=== PATIENT | female | born 1990 | race Caucasian/White ===

== ENCOUNTER 2024-05-09 07:40 | Emergency (ER) | payer BC ==
[2024-05-09 07:53] VITALS: TEMP 98.9
--- NOTE | 2024-05-09 08:09 | ED ---
Abdominal Pain HPI - General Chief Complaint: Abdominal Pain Stated Complaint: abdominal pain, vomitting Time Seen by Provider: 05/09/24 08:07 Source: patient, family, RN notes reviewed Mode of arrival: wheelchair Limitations: no limitations - History of Present Illness Initial Comments: 33-year-old female presented the ER for evaluation abdominal pain. Patient reports she is currently being picked up for possible endometriosis. She states since 05-06-2024 she has had progressively worsening abdominal pain. She does report this is worse on the right side. She describes it as a squeezing twisting pain. Patient does admit to being currently on her menstrual cycle. She states this morning she had multiple episodes of nausea and vomiting due to the pain which prompted her to come to the ER for evaluation. Patient has been taking [id number] 600 mg ibuprofen without relief. She does report pain is worse with movement and improves with laying flat and still. She denies any fevers, urinary complaints, constipation/diarrhea, chest pain, shortness of breath or other complaints. - Related Data Home Medications Medication Instructions Recorded Confirmed QUEtiapine [SEROquel] 25 mg PO HS PRN 05/09/24 05/09/24 Vortioxetine Hydrobromide 20 mg PO DAILY@1830 05/09/24 05/09/24 [Trintellix] buPROPion XL [Wellbutrin XL] 150 mg PO DAILY@1330 05/09/24 05/09/24 Previous Rx's Medication Instructions Recorded Cyclobenzaprine [Flexeril] 5 mg PO TID PRN #15 tablet 05/09/24 Ibuprofen [Motrin] 800 mg PO Q6HR #30 tab 05/09/24 Allergies Allergy/AdvReac Type Severity Reaction Status Date / Time No Known Allergies Allergy Verified 05/09/24 09:53 Review of Systems ROS Statement: Those systems with pertinent positive or pertinent negative responses have been documented in the HPI. ROS Other: All systems not noted in ROS Statement are negative. Past Medical History Past Medical History: No Reported History History of Any Multi-Drug Resistant Organisms: None Reported Past Psychological History: ADD/ADHD, Anxiety, Depression Smoking Status: Never smoker Past Alcohol Use History: Occasional Past Drug Use History: None Reported General Exam Limitations: no limitations General appearance: alert, in no apparent distress, other (Patient appears uncomfortable upon entering room) Respiratory exam: Present: normal lung sounds bilaterally. Absent: respiratory distress, wheezes, rales, rhonchi, stridor Cardiovascular Exam: Present: regular rate, normal rhythm, normal heart sounds. Absent: systolic murmur, diastolic murmur, rubs, gallop, clicks GI/Abdominal exam: Present: soft, tenderness (generalized more prominent RLQ), normal bowel sounds External exam: Present: normal external exam Speculum exam: Present: cervical discharge (Minimal brown cervical discharge) By manual exam: Present: uterine tenderness (No cervical motion tenderness.) Neurological exam: Present: alert, oriented X3, CN II-XII intact Skin exam: Present: warm, dry, intact, normal color. Absent: rash Course Vital Signs 05/09/24 05/09/24 07:50 11:34 Temperature 98.9 F Pulse Rate 106 H 93 Respiratory 16 18 Rate Blood Pressure 102/67 119/72 O2 Sat by Pulse 100 98 Oximetry - Reevaluation(s) Reevaluation #1: Pelvic exam chaperoned by Eli Sandoval RN. Medical Decision Making - Medical Decision Making Was pt. sent in by a medical professional or institution (, PA, WOOD DIE MAKER, urgent care, hospital, or long term...) When possible be specific @ -No Did you speak to anyone other than the patient for history (EMS, parent, family, police, friend...)? What history was obtained from this source @ -No Did you review nursing and triage notes (agree or disagree)? Why? @ -I reviewed and agree with nursing and triage notes Were old charts reviewed (outside hosp., previous admission, EMS record, old EKG, old radiological studies, urgent care reports/EKG's, long term records)? Report findings @ -No old charts were reviewed Differential Diagnosis (chest pain, altered mental status, abdominal pain women, abdominal pain men, vaginal bleeding, weakness, fever, dyspnea, syncope, headache, dizziness, GI bleed, back pain, seizure, CVA, palpatations, mental health, musculoskeletal)? @ -Differential Abdominal Pain Women: Appendicitis, Cholecystitis, diverticulosis, ischemic bowel, pancreatitis, hepatitis, UTI, gastroenteritis, AAA, incarcerated hernia, bowel obstruction, constipation, inflammatory bowel, hepatitis, peptic ulcer disease, splenic infarction, perforated viscus, vulvitis, ovarian torsion, PID, kidney stone, placenta abruption, this is not meant to be an all-inclusive list EKG interpreted by me (3pts min.). @ -As above X-rays interpreted by me (1pt min.). @ -None done CT interpreted by me (1pt min.). @ -CT abdomen pelvis showing moderate fat stranding and edematous changes within the pelvis with mild to moderate free fluid some of which tracks up to the left pericoloic gutter. Bilateral adnexal cystic lesions measuring up to 4.4 cm. Small bowel wall thickening within the lower abdomen/pelvis likely continuous inflammation. U/S interpreted by me (1pt. min.). @ -Transvaginal ultrasound showing myometrium is heterogeneous with small echogenic foci possibly adenomyosis. Round hypoechoic lesions in bilateral ovaries 4.6 cm on the right 3.4 cm on the left. Likely hemorrhagic cyst versus corpus luteum. Appropriate arterial and venous flow to bilateral ovaries. What testing was considered but not performed or refused? (CT, X-rays, U/S, labs)? Why? @ -Patient refused prophylactic treatment of STDs. Patient displayed medical d ecision-making capabilities. Risk discussed with patient who verbally expressed understanding. What meds were considered but not given or refused? Why? @ -None Did you discuss the management of the patient with other professionals (professionals i.e. , PA, WOOD DIE MAKER, lab, RT, psych nurse, social worker palliative care, washhouse worker, teacher, aerospace engineer officer armament, case finishing machine adjuster)? Give summary @ -No Was smoking cessation discussed for >3mins.? @ -No Was critical care preformed (if so, how long)? @ -No Were there social determinants of health that impacted care today? How? (Homelessness, low income, unemployed, alcoholism, drug addiction, transportation, low edu. Level, literacy, decrease access to med. care, retirement, rehab)? @ -No Was there de-escalation of care discussed even if they declined (Discuss DNR or withdrawal of care, Hospice)? DNR status @ -No What co-morbidities impacted this encounter? (DM, HTN, Smoking, COPD, CAD, Cancer, CVA, ARF, Chemo, Hep., AIDS, mental health diagnosis, sleep apnea, morbid obesity)? @ -None Was patient admitted / discharged? Hospital course, mention meds given and route, prescriptions, significant lab abnormalities, going to OR and other pertinent info. @ -Discharge. 33-year-old female presenting to the ER for evaluation of abdominal pain. History and physical exam completed. Patient is tachycardic upon arrival which is believed to be due from pain and anxiety. Patient appears uncomfortable on examination and has generalized abdominal tenderness on exam. Pelvic exam performed and chaperoned by Eli Olivarez RN. There is no cervical motion tenderness but tenderness to uterus upon palpation. Laboratory studies obtained showing a leukocytosis of 14.3 with a left shift, which may be due to infection and/or nausea vomiting. CMP unremarkable. Urine hCG negative. Urinalysis without infection and is contaminated with small blood which is likely due to patient's menstrual cycle. Urine gonorrhea, chlamydia and trichomonas test pending. Transvaginal ultrasound completed showing bilateral adnexal cysts. Appropriate blood flow to bilateral ovaries. CT completed at that time showing concerning findings of ruptured hemorrhagic cysts versus PID. Upon reevaluation, patient resting comfortably in exam room no signs of acute distress. Results discussed with patient, all questions answered. Given concern of possible PID prophylactic STD treatment was offered to patient, who refused. Patient given symptomatic control in the ER. Patient is stable for outpatient follow-up with BRIM STRETCHING MACHINE OPERATOR at this time, patient will be discharged with Flexeril, ibuprofen and Tylenol 3 starter pack. Strict return parameters discussed. Patient discharged in stable condition with follow-up to PCP/BRIM STRETCHING MACHINE OPERATOR. Patient verbally expressed understanding and agreement with care plan. Case discussed with ED attending, Dr. Leung. Undiagnosed new problem with uncertain prognosis? @ -No Drug Therapy requiring intensive monitoring for toxicity (Heparin, Nitro, Insul in, Cardizem)? @ -No Were any procedures done? @ -No Diagnosis/symptom? @ -Abdominal pain/hemorrhagic cysts versus PID Acute, or Chronic, or Acute on Chronic? @ -Acute Uncomplicated (without systemic symptoms) or Complicated (systemic symptoms)? @ -Uncomplicated Side effects of treatment? @ -No Exacerbation, Progression, or Severe Exacerbation? @ -No Poses a threat to life or bodily function? How? (Chest pain, USA, DC, pneumonia, PE, COPD, DKA, ARF, appy, cholecystitis, CVA, Diverticulitis, Homicidal, Suicidal, threat to staff... and all critical care pts) @ -Yes, pelvic inflammatory disease can lead to infertility. - Lab Data Result diagrams: 05/09/24 08:55 05/09/24 08:55 Lab Results 05/09/24 05/09/24 05/09/24 Range/Units 08:55 08:55 08:55 WBC 14.3 H (3.8-10.6) k/uL RBC 4.52 (3.80-5.40) m/uL Hgb 13.2 (11.4-16.0) gm/dL Hct 39.9 (34.0-46.0) % MCV 88.3 (80.0-100.0) fL MCH 29.1 (25.0-35.0) pg MCHC 33.0 (31.0-37.0) g/dL RDW 14.5 (11.5-15.5) % Plt Count 235 (150-450) k/uL MPV 8.0 Neutrophils % 88 % Lymphocytes % 6 % Monocytes % 6 % Eosinophils % 0 % Basophils % 0 % Neutrophils # 12.6 H (1.3-7.7) k/uL Lymphocytes # 0.8 L (1.0-4.8) k/uL Monocytes # 0.8 (0-1.0) k/uL Eosinophils # 0.0 (0-0.7) k/uL Basophils # 0.0 (0-0.2) k/uL Sodium 139 (137-145) mmol/L Potassium 3.8 (3.5-5.1) mmol/L Chloride 105 (98-107) mmol/L Carbon Dioxide 26 (22-30) mmol/L Anion Gap 8 mmol/L BUN 10 (7-17) mg/dL Creatinine 0.66 (0.52-1.04) mg/dL Est GFR (CKD-EPI)AfAm >90 (>60 ml/min/1.73 sqM) Est GFR (CKD-EPI)NonAf >90 (>60 ml/min/1.73 sqM) Glucose 102 H (74-99) mg/dL Plasma Lactic Acid Robert 0.8 (0.7-2.0) mmol/L Calcium 9.2 (8.4-10.2) mg/dL Total Bilirubin 0.6 (0.2-1.3) mg/dL AST 15 (14-36) U/L ALT 11 (4-34) U/L Alkaline Phosphatase 70 (38-126) U/L Total Protein 7.3 (6.3-8.2) g/dL Albumin 4.6 (3.5-5.0) g/dL Amylase 49 (30-110) U/L Lipase 34 (23-300) U/L Urine Color Urine Appearance (Clear) Urine pH (5.0-8.0) Ur Specific [place] (1.001-1.035) Urine Protein (Negative) Urine Glucose (UA) (Negative) Urine Ketones (Negative) Urine Blood (Negative) Urine Nitrite (Negative) Urine Bilirubin (Negative) Urine Urobilinogen (<2.0) mg/dL Ur Leukocyte Esterase (Negative) Urine RBC (0-5) /hpf Urine WBC (0-5) /hpf Ur Squamous Epith Cells (0-4) /hpf Urine Bacteria (None) /hpf Urine Mucus (None) /hpf Urine HCG, Qual (Not Detectd) 05/09/24 05/09/24 Range/Units 10:30 10:30 WBC (3.8-10.6) k/uL RBC (3.80-5.40) m/uL Hgb (11.4-16.0) gm/dL Hct (34.0-46.0) % MCV (80.0-100.0) fL MCH (25.0-35.0) pg MCHC (31.0-37.0) g/dL RDW (11.5-15.5) % Plt Count (150-450) k/uL MPV Neutrophils % % Lymphocytes % % Monocytes % % Eosinophils % % Basophils % % Neutrophils # (1.3-7.7) k/uL Lymphocytes # (1.0-4.8) k/uL Monocytes # (0-1.0) k/uL Eosinophils # (0-0.7) k/uL Basophils # (0-0.2) k/uL Sodium (137-145) mmol/L Potassium (3.5-5.1) mmol/L Chloride (98-107) mmol/L Carbon Dioxide (22-30) mmol/L Anion Gap mmol/L BUN (7-17) mg/dL Creatinine (0.52-1.04) mg/dL Est GFR (CKD-EPI)AfAm (>60 ml/min/1.73 sqM) Est GFR (CKD-EPI)NonAf (>60 ml/min/1.73 sqM) Glucose (74-99) mg/dL Plasma Lactic Acid Robert (0.7-2.0) mmol/L Calcium (8.4-10.2) mg/dL Total Bilirubin (0.2-1.3) mg/dL AST (14-36) U/L ALT (4-34) U/L Alkaline Phosphatase (38-126) U/L Total Protein (6.3-8.2) g/dL Albumin (3.5-5.0) g/dL Amylase (30-110) U/L Lipase (23-300) U/L Urine Color Colorless Urine Appearance Clear (Clear) Urine pH 5.5 (5.0-8.0) Ur Specific [place] 1.034 (1.001-1.035) Urine Protein Negative (Negative) Urine Glucose (UA) Negative (Negative) Urine Ketones Negative (Negative) Urine Blood Small H (Negative) Urine Nitrite Negative (Negative) Urine Bilirubin Negative (Negative) Urine Urobilinogen <2.0 (<2.0) mg/dL Ur Leukocyte Esterase Negative (Negative) Urine RBC <1 (0-5) /hpf Urine WBC 1 (0-5) /hpf Ur Squamous Epith Cells <1 (0-4) /hpf Urine Bacteria Rare H (None) /hpf Urine Mucus Rare H (None) /hpf Urine HCG, Qual Not Detected (Not Detectd) - Radiology Data Radiology results: report reviewed, image reviewed Disposition Clinical Impression: Abdominal pain Disposition: HOME SELF-CARE Condition: Stable Instructions (If sedation given, give patient instructions): Abdominal Pain (ED) Additional Instructions: Follow-up with BRIM STRETCHING MACHINE OPERATOR. Return to the ER for any new or worsening symptoms. Prescriptions: Cyclobenzaprine [Flexeril] 5 mg PO TID PRN #15 tablet PRN Reason: Muscle Spasm Ibuprofen [Motrin] 800 mg PO Q6HR #30 tab Is patient prescribed a controlled substance at d/c from ED?: No Referrals: Lolita Franklin MD [Primary Care Provider] - 1-2 days Time of Disposition: 11:54
[2024-05-09] MEDS: SODIUM CHLORIDE 0.9% 1,000 ML IV STA (08:55)
[2024-05-09 09:07] LABS: Basophils % (A) 0 %; Eosinophils % (A) 0 %; HCT 39.9 % (34.0-46.0); HGB 13.2 gm/dL (11.4-16.0); Lymphocytes # (A) 0.8 k/uL (1.0-4.8); Lymphocytes % (A) 6 %; MCH 29.1 pg (25.0-35.0); MCV 88.3 fL (80.0-100.0); Monocytes # (A) 0.8 k/uL (0-1.0); Monocytes % (A) 6 %; Neutrophils # (A) 12.6 k/uL (1.3-7.7); Neutrophils % (A) 88 %; Platelet Count 235 k/uL (150-450); RBC 4.52 m/uL (3.80-5.40); RDW 14.5 % (11.5-15.5); WBC 14.3 k/uL (3.8-10.6)
[2024-05-09] MEDS: ONDANSETRON 4 MG/2 ML VIAL IVP STA (09:07)
[2024-05-09] MEDS: ACETAMINOPHEN TAB 325 MG TAB PO STA (09:09)
--- NOTE | 2024-05-09 09:18 | US ---
EXAMINATION TYPE: US transvaginal plus Dopplers DATE OF EXAM: 05/09/2024 COMPARISON: NONE CLINICAL INDICATION: Female, 33 years old with history of RLQ abd pain; TECHNIQUE: Transabdominal grayscale sonographic images of the pelvis were acquired. Transvaginal sonographic im ages were medically necessary to better assess the following anatomy: Doppler imaging: Performed bilaterally. Color Doppler and spectral waveform analysis of the ovarian a rteries and veins. FINDINGS: EXAM MEASUREMENTS: Uterus: 9.1x4.9x5.2 cm Endometrial Stripe: 1.0 cm Right Ovary: 4.1x4.9x5.1 cm for volume of 54 mL Left Ovary: 4.0x3.0x4.2 cm for a volume of 26 mL 1. Uterus: Anteverted. The myometrium appears heterogeneous with a scattered speckled echoes. Tiny c ervical nabothian cysts noted. 2. Endometrium: Slightly heterogeneous but normal thickness. 3. Right Ovary: There is a round hypoechoic lesion with peripheral vascularity measuring 4.6 x 3.9 x 2.1 cm. 4. Left Ovary: Suggestion of a uniformly hypoechoic round area within measuring 2.3x3.0x3.4cm Spectral, color and waveform doppler imaging shows good arterial and venous flow within the ovaries ; there is no evidence for ovarian torsion. 5. Bilateral Adnexa: wnl 6. Posterior cul-de-sac: wnl IMPRESSION: 1. Myometrium is heterogeneous with small echogenic foci. Consider the possibility of adenomyosis. Fe male pelvic MRI if further imaging evaluation is desired. 2. There is a round hypoechoic lesion within each ovary measuring 4.6 cm on the right and 3.4 cm on t he left. The right ovary secondarily measures large. Favor hemorrhagic cyst/corpus luteum. Follow-up ultrasound in 6-8 weeks to ensure involution. Imaging can be performed sooner if any worsening pain. 3. Otherwise, no sonographic evidence for ovarian torsion. [facility], , 05/09/2024 9:16 AM
[2024-05-09 09:23] LABS: ALT 11 U/L (4-34); AST 15 U/L (14-36); African American GFR (CKD) >90 (>60 ml/min/1.73 sqM); Albumin 4.6 g/dL (3.5-5.0); Alkaline Phosphatase 70 U/L (38-126); Amylase 49 U/L (30-110); Anion Gap 8 mmol/L; Blood Urea Nitrogen 10 mg/dL (7-17); Calcium 9.2 mg/dL (8.4-10.2); Carbon Dioxide 26 mmol/L (22-30); Chloride 105 mmol/L (98-107); Glucose 102 mg/dL (74-99); Lipase 34 U/L (23-300); Non-African American GFR(CKD) >90 (>60 ml/min/1.73 sqM); Potassium 3.8 mmol/L (3.5-5.1); Sodium 139 mmol/L (137-145); Total Bilirubin 0.6 mg/dL (0.2-1.3); Total Protein 7.3 g/dL (6.3-8.2)
[2024-05-09] MEDS: KETOROLAC 15 MG/ML 1 ML VIAL IVP STA (10:01)
--- NOTE | 2024-05-09 10:16 | CT ---
EXAMINATION TYPE: CT abdomen pelvis w con DATE OF EXAM: 05/09/2024 9:52 AM COMPARISON: None. CLINICAL INDICATION: Female, 33 years old with history of RLQ abd pain. TECHNIQUE: Contiguous axial scanning of the abdomen and pelvis following administration of 100 ml Iso lesly 300 IV contrast. Delayed images through the kidneys and coronal/sagittal reconstructions perform ed. CT DLP: 938.47 mGycm, Automated exposure control for dose reduction was used. FINDINGS: Heart normal size without pericardial effusion. Hazy dependent atelectasis posterior lung b ases. No pleural effusion. Liver borderline enlarged at 17.9 cm. Portal venous system is patent. No biliary ductal dilatation. Gallbladder, adrenal glands, kidneys, spleen, and pancreas within normal limits. Moderate stool burden. No pericolonic inflammatory change. Normal appendix. No dilated small bowel or free air. However, there does appear to be some small bowel fold thickening in the lower abdomen and pelvis. No free air. However, there is moderate fat stranding and edematous change noted in the pelvis mild to moderate free fluid tracking up along the lower left paracolic gu tter. Bilateral adnexal cystic lesions slat basket maker 4.4 cm on the right and 4.0 cm on the left. Uterus is antev erted. Left-sided pelvic phleboliths. No pelvic lymphadenopathy seen. Bones: Mild degenerative disc disease L5-S1 and also at T11-T12. IMPRESSION: 1. MODERATE FAT STRANDING AND EDEMATOUS CHANGE WITHIN THE PELVIS WITH MILD TO MODERATE FREE FLUID PAMELA E OF WHICH TRACKS UP THE LEFT PARACOLIC GUTTER. GIVEN THE BILATERAL ADNEXAL CYSTIC LESIONS MEASURING UP TO 4.4 CM, RUPTURED HEMORRHAGIC CYSTS AND PID ARE IN THE DIFFERENTIAL. FURTHER CLINICAL CORRELATIO N RECOMMENDED. 2. SOME ASSOCIATED SMALL BOWEL WALL THICKENING WITHIN THE LOWER ABDOMEN/PELVIS LIKELY CONTIGUOUS INFL AMMATION. [facility], , 05/09/2024 10:14 AM
[2024-05-09 10:53] LABS: Appearance,Urine Clear (Clear); Bacteria,Urine Rare /hpf; Bilirubin,Urine Negative (Negative); Blood,Urine Small (Negative); Color,Urine Colorless; Glucose,Urine (UA) Negative (Negative); Ketones,Urine Negative (Negative); Leukocyte Esterase,Urine Negative (Negative); Mucus,Urine Rare /hpf; Nitrite,Urine Negative (Negative); PH, Urine 5.5 (5.0-8.0); Protein,Urine Negative (Negative); RBC,Urine <1 /hpf (0-5); Specific Gravity,Urine 1.034 (1.001-1.035); Squamous Epithelial Cell,Urine <1 /hpf (0-4); Urobilinogen,Urine <2.0 mg/dL (<2.0); WBC,Urine 1 /hpf (0-5)
[2024-05-09 11:38] VITALS: BP 119/72; PULSE 93; RESP 18
[2024-05-09] MEDS: ACET/COD 300 MG/30 MG STARTER PACK 6 TAB BTL PO STA (12:03)
[2024-05-09] MEDS: Acetaminophen-Codeine 300-30mg TAB PO STA (12:03)
[2024-05-10 11:37] LABS: C. trachomatis,PCR Negative (Negative); N. gonorrhoeae,PCR Negative (Negative)
== END 2024-05-09 12:10 | disposition home or self-care (01) ==
LOC: EC 07:40
DX: R10.31 Right lower quadrant pain (principal)
CPT/HCPCS: 36415; 80053; 82150; 83605; 83690; 85025; 81001; 81025; 87491; 87591; 76830; 74177; 99284; 96374; 96375; 96361; J2405; J1885; 93975